=== PATIENT | female | born 1960 | race Caucasian/White ===

== ENCOUNTER → 2019-01-26 14:24 | Outpatient (CLI) | payer OTHER, SELFPAY ==
[2019-01-24 15:04] VITALS: BMI 31.5
--- NOTE | 2019-01-26 14:35 | BI_ITS ---
MAMMOGRAPHY - BILATERAL SCREENING REASON FOR EXAM: Female, 58 years old. Routine annual screening examination. PERTINENT HISTORY: Mother with breast cancer. TECHNIQUE: Digital bilateral breast nguyen (3D mammographic acquisition) in the CC and MLO projections. 2-D mediolateral oblique (MLO) and craniocaudad (CC) views of both breasts were obtained. CAD: Full Field Digital Mammography with Computer Added Detection was performed. COMPARISON: Comparison is made with prior outside examination dated February 01, 2018. FINDINGS: Breast Composition: There are scattered areas of fibroglandular density. There are no dominant masses or suspicious calcifications. No other significant abnormalities are identified. There has been no significant change since the prior study. BI/SCREEN MAMM (CAD) W/NGUYEN BILAT IMPRESSION: Stable bilateral screening mammogram. Yearly follow-up mammogram recommended. (A) ASSESSMENT CATEGORY: BIRADS Category 1: Negative. A letter regarding these results will be sent to the patient by the facility within 30 days. Approximately 10% of breast cancers are not detected by mammography. A normal mammogram should not delay biopsy of a clinically suspicious abnormality. [id number] Electronically Signed: Kimo Casey, at 8:16 EDT , Service support ,
== END ==
PROVIDERS: Family Provider Internal Medicine; PCP Internal Medicine; Referring Provider Internal Medicine; Visit Provider Internal Medicine
DX: Z12.31 Encounter for screening mammogram for malignant neoplasm of breast (principal)
CPT/HCPCS: 77063; 77067

== ENCOUNTER → 2019-01-31 07:40 | Outpatient (CLI) | payer OTHER, SELFPAY ==
[2019-01-24 15:04] VITALS: BMI 31.5
--- NOTE | 2019-01-31 13:27 | PFTCOMP_ITS ---
COMPLETE PULMONARY FUNCTION TEST INTERPRETATION Brief HPI: Patient is a 58 year old female, currently under the care of Dr. Conner, who presents to [facility] for complete pulmonary function tests secondary to diagnosis of dyspnea and chronic cough. Respiratory therapist reports good effort and reproducible results. Interpretation: Forced expiration spirometry shows a mild large airways obstructive ventilatory defect with an FEV1 of 77% predicted. There is no significant bronchodilator response by strict ATS criteria. Spirograms are of good quality and plateau slowly, indicating slowly emptying areas of the lungs. The respiratory flow volume loop shows decreased expiratory flow rates at all lung volumes consistent with airway obstruction. Lung volumes by body plethysmography show a normal total lung capacity at 4.29 L, 98% predicted. All other lung volumes are within normal limits. Diffusion capacity by carbon monoxide is normal at 77% predicted. The airway resistance is normal. No previous pulmonary function tests were available for review. Impression: Irreversible mild large airways obstructive ventilatory defect with preserved lung volumes and diffusion capacity, in a pattern consistent with chronic bronchitis.
== END ==
PROVIDERS: Family Provider Internal Medicine; PCP Internal Medicine; Referring Provider Internal Medicine; Visit Provider Internal Medicine
DX: R05 Cough (principal); R06.02 Shortness of breath
CPT/HCPCS: 94060; 94726; 94729

== ENCOUNTER → 2019-03-14 09:48 | Outpatient (CLI) | payer OTHER, SELFPAY ==
[2019-02-24 14:22] VITALS: BMI 31.5
--- NOTE | 2019-03-14 09:50 | RAD_ITS ---
STUDY: X-RAY CHEST REASON FOR EXAM: Female, 58 years old. Shortness of breath. Chronic bronchitis. TECHNIQUE: PA and lateral views of the chest. COMPARISON: None. FINDINGS: The lungs are clear and expanded. There is no demonstrated pleural abnormality. Normal size heart. Normal mediastinum and garth. Normal visualized pulmonary arteries. There is minimal atherosclerotic calcification of the aortic arch with tortuosity. Normal visualized thoracic spine. Normal visualized ribs, clavicles, and shoulders. There is no demonstrated abnormality of the visualized soft tissue structures of the upper abdomen. RAD/Chest PA and Lateral IMPRESSION: No acute cardiopulmonary disease. Electronically Signed: Tyron Dickinson DO at 16:51 EST Tel [phone], Service support ,
== END ==
PROVIDERS: Family Provider Internal Medicine; PCP Internal Medicine; Referring Provider Internal Medicine; Visit Provider Internal Medicine
DX: R06.02 Shortness of breath (principal); R05 Cough
CPT/HCPCS: 71046

== ENCOUNTER → 2019-03-15 10:00 | Outpatient (CLI) | payer OTHER, SELFPAY ==
[2019-02-24 14:22] VITALS: BMI 31.5
[2019-03-15 12:34] LABS: ALB/GLOB Ratio 0.7 RATIO (0.9-2.4); AST(SGOT) 18 U/L (15-37); Alanine Aminotransfer ALT/SGPT 28 U/L (13-56); Albumin, Serum 3.2 g/dL (3.2-5.0); Alkaline Phosphatase 102 U/L (45-117); Anion Gap 4 (5-15); BUN 11 mg/dL (7-18); BUN/Creat Ratio 11.9 RATIO (10-20); Calcium,Total 8.9 mg/dL (8.5-10.1); Chloride 108 mmol/L (98-107); Cholesterol 175 mg/dL (200); Creatinine, Serum 0.93 mg/dL (0.55-1.02); EST Glomerular Filtration Rate 66 mL/min (>60); Est Glom Filt Rate - Afr Amer 79 mL/min (>60); Globulin 4.6 g/dL (2.2-4.2); Glucose 130 mg/dL (74-106); High Density Lipoprotein 66 mg/dL; Potassium 3.9 mmol/L (3.5-5.1); Protein, Total 7.8 g/dL (6.4-8.2); Sodium Level 141 mmol/L (136-145); Triglycerides 56 mg/dL; Very Low Density Lipoprotein 11 mg/dL (5-40)
[2019-03-15 12:41] LABS: Absolute Lymphocyte Count 1.99 X10^3/uL (0.83-4.51); Absolute Neutrophil Count 4.3 X10^3/uL (2.0-7.7); Basophil# 0.04 X10^3/uL; Basophil% 0.6 % (0-1); Eosinophil# 0.13 X10^3/uL; Eosinophils% 1.9 % (0-5); Hematocrit 39.7 % (37-47); Hemoglobin 12.2 g/dL (12.0-15.0); Lymphocyte # 1.99 X10^3/ul (4.0); Lymphocyte % 29.2 % (19-41); Mean Corp Hgb Conc 30.7 g/dL (32-36); Mean Corpuscular Hgb 27.5 pg (27.0-32.0); Mean Corpuscular Volume 89.4 fL (81-99); Mean Platelet Vol. 9.1 fl (6.2-12.0); Monocyte# 0.37 X10^3/uL; Monocyte% 5.4 % (0-10); NRBC Flagged by Analyzer 0 % (0-5); Neutrophil # 4.27 X10^3/uL (2.7-7.7); Neutrophil % 62.6 % (47-70); Platelet Count 440 K/mm3 (150-450); RBC Distribution Width CV 15.4 % (11.6-14.6); RBC Distribution Width SD 50.4 fl (35.1-43.9); Red Blood Count 4.44 M/mm3 (4.2-5.4); White Blood Count 6.8 K/mm3 (4.4-11.0)
== END ==
PROVIDERS: Family Provider Internal Medicine; PCP Internal Medicine; Visit Provider Internal Medicine
DX: J42 Unspecified chronic bronchitis (principal); E66.9 Obesity, unspecified
CPT/HCPCS: 36415; 80053; 80061; 85025

== ENCOUNTER → 2020-01-12 | Outpatient (CLI) | payer BC, SELFPAY ==
[2020-01-12 14:35] VITALS: BMI 34.0
[2020-01-18 04:39] LABS: HPV APTIMA, High Risk Negative (Negative)
== END | disposition home or self-care (01) ==
LOC: LABSPEC 16:35
PROVIDERS: PCP Internal Medicine; Referring Provider Obstetrics & Gynecology; Visit Provider Obstetrics & Gynecology
DX: Z12.4 Encounter for screening for malignant neoplasm of cervix (principal)
CPT/HCPCS: 87624; 88175; G0145

== ENCOUNTER → 2020-01-23 09:20 | Outpatient (CLI) | payer BC, SELFPAY ==
[2020-01-20 11:17] VITALS: BMI 34.0
== END ==
PROVIDERS: PCP Internal Medicine; Referring Provider Nurse Practitioner Family; Visit Provider Nurse Practitioner Family
DX: R05 Cough (principal); Z20.828 Contact with and (suspected) exposure to other viral communicable diseases
CPT/HCPCS: 87635; C9803; U0003

== ENCOUNTER → 2020-02-03 14:25 | Outpatient (CLI) | payer BC, SELFPAY ==
[2020-01-12 14:35] VITALS: BMI 34.0
[2020-01-20 11:17] VITALS: BMI 34.0
--- NOTE | 2020-02-03 14:40 | BI_ITS ---
MAMMOGRAPHY - BILATERAL SCREENING REASON FOR EXAM: Female, 59 years old. Routine annual screening examination. PERTINENT HISTORY: Mother with breast cancer. TECHNIQUE: Digital bilateral breast nguyen (3D mammographic acquisition) in the CC and MLO projections. 2-D mediolateral oblique (MLO) and craniocaudad (CC) views of both breasts were obtained. CAD: Full Field Digital Mammography with Computer Added Detection was performed. COMPARISON: Comparison is made with prior study dated 01/26/2019. FINDINGS: Breast Composition: There are scattered areas of fibroglandular density. There are no dominant masses or suspicious calcifications. No other significant abnormalities are identified. There has been no significant change since the prior study. BI/SCREEN MAMM (CAD) W/NGUYEN BILAT IMPRESSION: Stable bilateral screening mammogram. Yearly follow-up mammogram recommended. (A) ASSESSMENT CATEGORY: BIRADS Category 1: Negative. A letter regarding these results will be sent to the patient by the facility within 30 days. Approximately 10% of breast cancers are not detected by mammography. A normal mammogram should not delay biopsy of a clinically suspicious abnormality. [id number] Electronically Signed: Kimo Casey, at 15:36 EDT , Service support ,
== END ==
PROVIDERS: PCP Internal Medicine; Referring Provider Obstetrics & Gynecology; Visit Provider Obstetrics & Gynecology
DX: Z12.31 Encounter for screening mammogram for malignant neoplasm of breast (principal); Z80.3 Family history of malignant neoplasm of breast
CPT/HCPCS: 77063; 77067

== ENCOUNTER → 2020-02-16 | Outpatient (CLI) | payer BC, SELFPAY | END | disposition home or self-care (01) | LOC: LABSPEC 02-21 12:18 | PROVIDERS: PCP Internal Medicine; Referring Provider Nurse Practitioner Family; Visit Provider Nurse Practitioner Family | DX: R05 Cough (principal); Z20.828 Contact with and (suspected) exposure to other viral communicable diseases | CPT/HCPCS: 87635; C9803; U0003 ==

== ENCOUNTER → 2020-03-09 13:33 | Outpatient (CLI) | payer BC, SELFPAY ==
--- NOTE | 2020-03-09 13:38 | RAD_ITS ---
STUDY: X-RAY CHEST REASON FOR EXAM: Female, 59 years old. SOB, COUGH AND CHEST TIGHTNESS. HX OF COPD TECHNIQUE: PA and lateral views of the chest. COMPARISON: Comparison is made with prior study dated 03/14/2019. FINDINGS: Mild increased markings in the right middle lobe. Infiltrate should be ruled out. There is no demonstrated pleural abnormality. Normal size heart. Normal mediastinum and garth. Normal visualized pulmonary arteries. Normal visualized aortic arch and descending thoracic aorta. Normal visualized thoracic spine. Normal visualized ribs, clavicles, and shoulders. There is no demonstrated abnormality of the visualized soft tissue structures of the upper abdomen. RAD/Chest PA and Lateral IMPRESSION: Mild increased markings are seen in the right middle lobe. Follow-up is recommended. Electronically Signed: Kimo Casey, at 15:39 EST , Service support ,
== END ==
PROVIDERS: PCP Internal Medicine; Referring Provider Nurse Practitioner Family; Visit Provider Nurse Practitioner Family
DX: R05 Cough (principal)
CPT/HCPCS: 71046

== ENCOUNTER → 2020-03-28 09:51 | Outpatient (CLI) | payer BC, SELFPAY ==
--- NOTE | 2020-03-28 09:52 | RAD_ITS ---
STUDY: X-RAY CHEST REASON FOR EXAM: Female, 59 years old. cough, recent pneumonia TECHNIQUE: 2 views COMPARISON: 03/09/2020 FINDINGS: Small persistent pleural-based density consistent with scarring or persistent atelectasis in the right middle lung zone. Otherwise no other infiltrates, consolidation or pleural effusion. Normal size heart. Normal mediastinum and garth. Normal visualized pulmonary arteries. There is atherosclerotic calcification of the aortic arch . Normal visualized thoracic spine. Normal visualized ribs, clavicles, and shoulders. There is no demonstrated abnormality of the visualized soft tissue structures of the upper abdomen. RAD/Chest PA and Lateral IMPRESSION: 1 minimal area of persistent atelectasis or scarring in the right middle lobe. Otherwise no acute cardiopulmonary findings. Electronically Signed: Lin Mills MD at 8:55 EST , Service support ,
== END ==
PROVIDERS: PCP Internal Medicine; Referring Provider Nurse Practitioner Family; Visit Provider Nurse Practitioner Family
DX: R05 Cough (principal)
CPT/HCPCS: 71046

== ENCOUNTER → 2021-02-04 13:33 | Outpatient (CLI) | payer BC, SELFPAY ==
--- NOTE | 2021-02-04 13:35 | BI_ITS ---
MAMMOGRAPHY - BILATERAL SCREENING REASON FOR EXAM: Female, 60 years old. Routine annual screening examination. PERTINENT HISTORY: Mother with breast cancer. TECHNIQUE: Digital bilateral breast nguyen (3D mammographic acquisition) in the CC and MLO projections. 2-D mediolateral oblique (MLO) and craniocaudad (CC) views of both breasts were obtained. CAD: Full Field Digital Mammography with Computer Added Detection was performed. COMPARISON: Comparison is made with prior study dated 02/03/2020 and 01/26/2019. FINDINGS: Breast Composition: There are scattered areas of fibroglandular density. There are no dominant masses or suspicious calcifications. No other significant abnormalities are identified. There has been no significant change since the prior study. BI/SCRN MAMM (CAD)W/NGUYEN BILAT IMPRESSION: Stable bilateral screening mammogram. Yearly follow-up mammogram recommended. (A) ASSESSMENT CATEGORY: BIRADS Category 1: Negative. A letter regarding these results will be sent to the patient by the facility within 30 days. Approximately 10% of breast cancers are not detected by mammography. A normal mammogram should not delay biopsy of a clinically suspicious abnormality. [id number] Electronically Signed: Kimo Casey MD at 14:19 EDT , Service support ,
== END ==
PROVIDERS: PCP Internal Medicine; Referring Provider Internal Medicine; Visit Provider Internal Medicine
DX: Z12.31 Encounter for screening mammogram for malignant neoplasm of breast (principal); Z80.3 Family history of malignant neoplasm of breast
CPT/HCPCS: 77063; 77067

== ENCOUNTER 2021-07-12 13:51 | Outpatient (CLI) | payer BC, SELFPAY ==
[2021-07-12 14:43] LABS: Absolute Lymphocyte Count 2.09 X10^3/uL (0.83-4.51); Absolute Neutrophil Count 4.5 X10^3/uL (2.0-7.7); Basophil# 0.02 X10^3/uL; Basophil% 0.3 % (0-1); Eosinophils% 1.4 % (0-5); Hematocrit 37.5 % (37-47); Hemoglobin 11.8 g/dL (12.0-15.0); Lymphocyte # 2.09 X10^3/ul (0.83-4.51); Lymphocyte % 29.1 % (19-41); Mean Corp Hgb Conc 31.5 g/dL (32-36); Mean Corpuscular Hgb 27.9 pg (27.0-32.0); Mean Corpuscular Volume 88.7 fL (81-99); Mean Platelet Vol. 8.9 fl (6.2-12.0); Monocyte# 0.43 X10^3/uL; NRBC Flagged by Analyzer 0 % (0-5); Neutrophil # 4.53 X10^3/uL (2.7-7.7); Neutrophil % 63.1 % (47-70); Platelet Count 537 K/mm3 (150-450); RBC Distribution Width CV 14.6 % (11.6-14.6); RBC Distribution Width SD 47.2 fl (35.1-43.9); Red Blood Count 4.23 M/mm3 (4.2-5.4); White Blood Count 7.2 K/mm3 (4.4-11.0)
[2021-07-12 15:28] LABS: ALB/GLOB Ratio 0.6 RATIO (0.9-2.4); AST(SGOT) 11 U/L (15-37); Alanine Aminotransfer ALT/SGPT 22 U/L (13-56); Alkaline Phosphatase 96 U/L (45-117); Anion Gap 4 (5-15); BUN 12 mg/dL (7-18); BUN/Creat Ratio 15.4 RATIO (10-20); Calcium,Total 8.8 mg/dL (8.5-10.1); Chloride 107 mmol/L (98-107); Cholesterol 171 mg/dL (200); Creatinine, Serum 0.78 mg/dL (0.55-1.02); EST Glomerular Filtration Rate 80 mL/min (>60); Est Glom Filt Rate - Afr Amer 96 mL/min (>60); Globulin 4.8 g/dL (2.2-4.2); Glucose 90 mg/dL (74-106); High Density Lipoprotein 57 mg/dL; Potassium 4.1 mmol/L (3.5-5.1); Protein, Total 7.8 g/dL (6.4-8.2); Sodium Level 139 mmol/L (136-145); T4 Free Direct 1.02 ng/dL (0.76-1.46); Thyroid Stim Hormone (TSH) 1.17 uIU/mL (0.358-3.74); Triglycerides 65 mg/dL; Very Low Density Lipoprotein 13 mg/dL (5-40)
== END 2021-07-12 23:59 | disposition home or self-care (01) ==
LOC: BIMLAB 13:52
PROVIDERS: PCP Internal Medicine; Referring Provider Physician Assistant; Visit Provider Physician Assistant
DX: K51.90 Ulcerative colitis, unspecified, without complications (principal); K58.9 Irritable bowel syndrome, unspecified; K21.9 Gastro-esophageal reflux disease without esophagitis; F41.9 Anxiety disorder, unspecified
CPT/HCPCS: 36415; 80053; 80061; 84439; 84443; 85025

== ENCOUNTER → 2021-09-25 | Outpatient (CLI) | payer BC, SELFPAY | END | disposition home or self-care (01) | LOC: LABSPEC 10:31 | PROVIDERS: PCP Internal Medicine; Visit Provider Obstetrics & Gynecology | DX: N90.7 Vulvar cyst (principal) | CPT/HCPCS: 87070; 87205 ==

== ENCOUNTER → 2021-10-09 | Outpatient (CLI) | payer BC, SELFPAY ==
--- NOTE | 2021-10-09 15:44 | CT_ITS ---
EXAM: CT ABDOMEN AND PELVIS WITH INTRAVENOUS CONTRAST CLINICAL INDICATION: pelvic pain TECHNIQUE: Helically acquired images were obtained of the abdomen and pelvis with intravenous contrast. CTDIvol = ( 18.42 ) mGy, DLP = ( 2023.26 ) mGycm This CT exam was performed using one or more of the following dose reduction techniques: automated exposure control, adjustment of the mA and/or kV according to patient size, and/or use of iterative reconstruction technique. This report was created using iNeed report StandardNine technology. CONTRAST: Oral and amp;amp; IV Readi-CAT and amp;amp; 100mL Isovue-300 COMPARISON: None. FINDINGS: LOWER THORAX: Unremarkable. Lung bases are clear. No cardiomegaly. No significant pericardial effusion. ABDOMEN: LIVER: See below. GALLBLADDER AND BILE DUCTS: Prior cholecystectomy. No intra- or extrahepatic biliary ductal dilation. PANCREAS: Unremarkable. No focal cystic or solid mass. SPLEEN: Hypodense lesion involving the spleen is small, measuring up to 1 cm. Consider follow-up nonemergent liver CT to value for possible hemangioma. ADRENALS: Unremarkable. No nodules. KIDNEYS AND URETERS: No hydroureteronephrosis. No other renal abnormalities. Normal renal size and position. STOMACH AND BOWEL: Thickening of the wall of the duodenum is concerning for duodenitis. No bowel obstruction. Postsurgical changes involving the area of the rectum which appears distended with fluid and air. PELVIS: APPENDIX: No evidence of acute appendicitis. BLADDER: Bladder is decompressed in appearance. REPRODUCTIVE: Unremarkable as visualized. No mass. ABDOMEN and PELVIS: INTRAPERITONEAL SPACE: Unremarkable. No ascites or other fluid collection. No free air. BONES/JOINTS: Unremarkable. No suspicious lytic or blastic abnormality. SOFT TISSUES: Unremarkable. No discrete abdominal or pelvic wall hernia. VASCULATURE: Unremarkable. Abdominal aorta is non-dilated. LYMPH NODES: Unremarkable. No enlarged lymph nodes. CT/Abdomen/Pelvis WITH Contrast IMPRESSION: 1. Postsurgical changes involving the area of the rectum which appears distended with fluid and air. 2. Thickening of the wall of the duodenum is concerning for duodenitis. 3. Hypodense lesion involving the spleen is small, measuring up to 1 cm. Consider follow-up nonemergent liver CT to value for possible hemangioma. Electronically Signed: Dung Aranda MD at 4:36 EDT ,
[2021-10-09 16:10] LABS: CREATININE FINGERSTICK < 0.9 mg/dL (0.55-1.02); EGFR FINGERSTICK > 60.0000 mL/min (>60)
== END | disposition home or self-care (01) ==
PROVIDERS: PCP Internal Medicine; Referring Provider Obstetrics & Gynecology; Visit Provider Obstetrics & Gynecology
DX: K31.89 Other diseases of stomach and duodenum (principal); D73.89 Other diseases of spleen; R10.2 Pelvic and perineal pain
CPT/HCPCS: 74177; Q9967

== ENCOUNTER → 2022-01-10 | Outpatient (CLI) | payer BC, SELFPAY ==
[2022-01-10 13:47] LABS: Absolute Lymphocyte Count 1.68 X10^3/uL (0.83-4.51); Absolute Neutrophil Count 4.5 X10^3/uL (2.0-7.7); Basophil# 0.02 X10^3/uL; Basophil% 0.3 % (0-1); Eosinophil# 0.04 X10^3/uL; Eosinophils% 0.6 % (0-5); Hematocrit 40.2 % (37-47); Hemoglobin 12.4 g/dL (12.0-15.0); Lymphocyte # 1.68 X10^3/ul (0.83-4.51); Lymphocyte % 25.2 % (19-41); Mean Corp Hgb Conc 30.8 g/dL (32-36); Mean Corpuscular Hgb 26.7 pg (27.0-32.0); Mean Corpuscular Volume 86.6 fL (81-99); Mean Platelet Vol. 9.3 fl (6.2-12.0); NRBC Flagged by Analyzer 0 % (0-5); Neutrophil # 4.51 X10^3/uL (2.7-7.7); Neutrophil % 67.6 % (47-70); Platelet Count 447 K/mm3 (150-450); RBC Distribution Width CV 16.1 % (11.6-14.6); RBC Distribution Width SD 49.9 fl (35.1-43.9); Red Blood Count 4.64 M/mm3 (4.2-5.4); White Blood Count 6.7 K/mm3 (4.4-11.0)
[2022-01-10 13:55] LABS: Erythrocyte Sedimentation Rate 69 mm/hr (0-30)
[2022-01-10 14:27] LABS: ALB/GLOB Ratio 0.6 RATIO (0.9-2.4); AST(SGOT) 13 U/L (15-37); Alanine Aminotransfer ALT/SGPT 21 U/L (13-56); Alkaline Phosphatase 84 U/L (45-117); Anion Gap 8 (5-15); BUN 13 mg/dL (7-18); BUN/Creat Ratio 14.3 RATIO (10-20); Calcium,Total 9.3 mg/dL (8.5-10.1); Chloride 108 mmol/L (98-107); Creatinine, Serum 0.91 mg/dL (0.55-1.02); EST Glomerular Filtration Rate 66 mL/min (>60); Est Glom Filt Rate - Afr Amer 80 mL/min (>60); Globulin 4.7 g/dL (2.2-4.2); Glucose 99 mg/dL (74-106); LDH 128 U/L (84-246); Potassium 4.2 mmol/L (3.5-5.1); Protein, Total 7.7 g/dL (6.4-8.2); Sodium Level 142 mmol/L (136-145)
[2022-01-13 13:08] LABS: Anti-Centromere B Ab <0.2 AI (0.0-0.9); Anti-Chromatin <0.2 AI (0.0-0.9); Anti-Jo <0.2 AI (0.0-0.9); Anti-Scleroderma-70 AB <0.2 AI (0.0-0.9); RNP Ab 0.4 AI (0.0-0.9); SJOGREN'S Anti-SS-A test < 0.2 AI (0.0-0.9); SJOGREN'S Anti-SS-B test < 0.2 AI (0.0-0.9); Smith Ab <0.2 AI (0.0-0.9)
[2022-01-13 15:08] LABS: Endomysial Antibody IgA Negative (Negative)
[2022-01-13 16:49] LABS: Anti-dsDNA Ab 1 IU/mL (0-9)
[2022-01-14 08:56] LABS: Immunoglobulin A 463 mg/dL (87-352); t-Transglutaminase IgA 3 U/mL (0-3)
[2022-01-18 17:07] LABS: Albumin 3.2 g/dL (2.9-4.4); Alpha-1-Globulins 0.3 g/dL (0.0-0.4); Alpha-2-Globulins 0.9 g/dL (0.4-1.0); Cytoplasmic Ab (C-ANCA) <1:20 titer (Neg:<1:20); Gamma Globulin 1.6 g/dL (0.4-1.8); Immunoglobulin A 474 mg/dL (87-352); Immunoglobulin E 77 IU/mL (6-495); Immunoglobulin G 1466 mg/dL (586-1602); Immunoglobulin M 107 mg/dL (26-217); PROEL- TOTAL PROTEIN 7.2 g/dL (6.0-8.5)
[2022-01-19 08:34] LABS: Perinuclear Ab (P-ANCA) <1:20 titer (Neg:<1:20)
== END | disposition home or self-care (01) ==
PROVIDERS: PCP Internal Medicine; Visit Provider Internal Medicine Gastroenterology
DX: K51.90 Ulcerative colitis, unspecified, without complications (principal)
CPT/HCPCS: 36415; 80053; 82784; 82785; 83516; 83615; 84165; 85025; 85652; 86140; 86225; 86235; 86255; 86256; 86334

== ENCOUNTER → 2022-01-15 | Outpatient (CLI) | payer BC, SELFPAY ==
[2022-01-21 13:21] LABS: Calprotectin, Stool 637 ug/g (0-120)
== END | disposition home or self-care (01) ==
LOC: LABSPEC 14:16
PROVIDERS: PCP Internal Medicine; Visit Provider Internal Medicine Gastroenterology
DX: K51.90 Ulcerative colitis, unspecified, without complications (principal)
CPT/HCPCS: 83630; 83993

== ENCOUNTER → 2022-02-06 | Outpatient (CLI) | payer BC, SELFPAY ==
--- NOTE | 2022-02-06 12:54 | BI_ITS ---
MAMMOGRAPHY - BILATERAL SCREENING REASON FOR EXAM: Female, 61 years old. Routine annual screening examination. PERTINENT HISTORY: Mother with breast cancer. TECHNIQUE: Digital bilateral breast nguyen (3D mammographic acquisition) in the CC and MLO projections. 2-D mediolateral oblique (MLO) and craniocaudad (CC) views of both breasts were obtained. CAD: Full Field Digital Mammography with Computer Added Detection was performed. COMPARISON: Comparison is made with prior study 02/04/2021 and 02/03/2020. FINDINGS: Breast Composition: There are scattered areas of fibroglandular density. There are no dominant masses or suspicious calcifications. No other significant abnormalities are identified. There has been no significant change since the prior study. BI/SCRN MAMM (CAD)W/NGUYEN BILAT IMPRESSION: Stable bilateral screening mammogram. Yearly follow-up mammogram recommended. (A) ASSESSMENT CATEGORY: BIRADS Category 1: Negative. A letter regarding these results will be sent to the patient by the facility within 30 days. Approximately 10% of breast cancers are not detected by mammography. A normal mammogram should not delay biopsy of a clinically suspicious abnormality. [id number] Electronically Signed: Kimo Casey MD at 14:03 EDT ,
== END | disposition home or self-care (01) ==
LOC: OPBI 12:53
PROVIDERS: PCP Internal Medicine; Referring Provider Internal Medicine; Visit Provider Internal Medicine
DX: Z12.31 Encounter for screening mammogram for malignant neoplasm of breast (principal); Z80.3 Family history of malignant neoplasm of breast
CPT/HCPCS: 77063; 77067

== ENCOUNTER 2022-03-12 09:17 | Day surgery (SDC) | payer BC, SELFPAY ==
[2022-03-12] VITALS (7 sets, daily range): BP systolic 90–126; BP diastolic 56–90; PULSE 60–95; RESP 16–18; TEMP 36.4–36.8; O2SAT 92–98
--- NOTE | 2022-03-12 09:50 | HP.PCM_ITS ---
History and Physical Date of Admission: 03/12/22 61 F who presents to the office today for Initial consult. Madelin established with this cinic .11.25 with referral from [facility]. History of UC with complete resection of colon performed 1996 in [place]; disease was not controlled with medications (unknown meds). Previously suspected fistula formation that was negative; pelvic exam 09.25.21 noted two perirectal sores that leak purulent matter, itch and are painful. She is incontinent of stool for the last couple of years; occurs every day and is all day long. Incontinence has not been evaluated previously. No abdominal pain/cramping, appetite is good, no weight loss. GERD is also a difficulty; but is well controlled with PPI and has no breakthrough symptoms related to this. CT abd/pel 10.09.21 small splenic lesion; suspected hepatic hemangioma; possible duodenitis; postsurgical changes of rectum which is distended with fluid and air. ROS Const Constitutional: No body ache, chills, excessive sweating, fatigue, fever(s), frequent falls, headache(s), snoring, weakness, weight change, sleep problems or change in appetite Eyes Eyes: No blurry vision, change in vision, eye pain or Light sensitivity ENT ENT: No abnormal hearing, ear or mastoid pain, tinnitus, nasal congestion, headache(s), neck pain or sore throat Resp Respiratory: No cough, shortness of breath, snoring or wheezing Cardio Cardiology: No chest pain at rest, chest pain with exertion, excessive sweating, shortness of breath, dyspnea on exertion, lightheadedness, orthopnea or palpitations Gastro GI: No abdominal pain, change in bowel habits, constipation, cramping, diarrhea, nausea/dyspepsia or vomiting Genitourinary-Female: No burning urination, painful urination, urinary incontinence, urinary frequency, abnormal vaginal bleeding or pelvic pain Musc Musculoskeletal: No abnormal gait, joint pain, back pain, limited range of motion, neck pain, numbness or tingling Skin Skin: No dry skin, redness, lesions, itchy eyes, rash or wounds Neuro Neurology: No abnormal gait, abnormal hearing, abnormal speech, dizziness, weakness, frequent falls, headache(s), memory loss, numbness or tingling Psych Psychiatric: No anxiety, No change in appetite, No depression, No memory loss and No Thoughts of harming yourself/Others Endo Endocrine: No cold intolerance, excessive sweating, fatigue, flushing, heat intolerance, increased thirst/drinking, increased hunger or weight change Aller/Imm Allergy/Immunologic: No itchy eyes, seasonal allergy symptoms, hives or wheezing Harjinder/Lymp Hematologic/Lymphatic: No easy bleeding, easy bruising or enlarged lymph nodes Exam Const General: cooperative, uncomfortable and no acute distress Orientation: alert, awake and oriented x3 HENMT Head: normal to inspection, normocephalic and atraumatic Ears: hearing grossly normal bilaterally Neck Neck: normal visual inspection and full ROM Neck mass: No Resp Effort & Inspection: normal respiratory effort and able to speak in complete sentences Auscultation: Bilateral: Clear to Auscultation Cardio Rate: regular rate Rhythm: regular rhythm Heart Sounds: S1 normal and S2 normal Skin General: no rashes or lesions noted Trauma: no lacerations or abrasions Wounds: no wounds Neuro General: patient alert, patient awake, patient oriented x3, moves all extremities and CN's II-XI intact bilaterally Cognition: normal cognition Speech: speech normal Gait: normal gait Extrem General: normal to inspection and no clubbing, cyanosis or edema Psych Appearance: grossly normal Mental Status: mental status grossly normal Mood: congruent mood Affect: normal affect Quality Reporting Tobacco Screening ([facility]) Smoking Status: Former smoker Assessment and Plan Assessment and Plan (1) Ulcerative colitis: ?Status:?Chronic ?Plan: It sounds as if she has a pouchitis.? We will give her levofloxacin plus metronidazole for approximately 14 days with 1 refill.? We will also give her a short course of tramadol and hydrocortisone suppositories for anal fissure.? She may also need either mesalamine or steroid-based enemas in the future if she is refractory to this current recommendation. ? ? ? Medications: New levofloxacin 500 mg PO DAILY 14 tabs 0RF ? ? metronidazole 500 mg PO Q8H 52 tabs 0RF ? ? tramadol 50 mg PO Q6H PRN 30 tabs 0RF pain 10 day s ? ? hydrocortisone acetate 30 mg ND QHS 12 ea 1RF 21 days ? ? I have examined the patient and the H&P has been reviewed. There are no clinical changes since date of exam.
[2022-03-12] MEDS: Lactated Ringers 1,000 ML 15 ML IV (10:04)
--- NOTE | 2022-03-12 10:30 | EGD_PTH ---
PATIENT: WENDY BUCKLEY LOC: EN U#:[id number] AGE/SX: 61/F ROOM: RE03/12/[address]: Dr. Almas Somers DO : 1960 BED: DIS: 03/12/2022 SPEC #: [id number] RECD: 03/12/22 12:42 STATUS: VALENTE CRUZ #: [id number] JESSICA: 03/12/22 10:[address]: Almas Somers DEPT: SURGICAL PATHOLOGY RECD BY: Kaylyn Frost ENTERED: 03/12/22 13:29 SP TYPE: EGD BIOPSY [facility] DR: Dr. Nigel Conner MD Tissues: A - Esophagus, NOS B - COLON BIOPSY C - COLON BIOPSY Procedures: Special Stain Group II Surgery Specimen Level IV Alcian Blue/PAS (control) HEADER OPERATION: Colonoscopy, EGD (MAC), pill cam placement, biopsy, electrohemostasis PRE-OP DIAGNOSIS: Ulcerative colitis TISSUE SUBMITTED: A ? Distal esophagus biopsy, B ? Ileoanal anastomosis biopsy, C ? Anal biopsy MICROSCOPIC DIAGNOSIS A. Distal esophagus, biopsy Fragments of gastroesophageal mucosa with chronic inflammation. Intestinal metaplasia (goblet cell metaplasia) not identified. See comment. B. Ileoanal anastomosis, biopsy: Fragments of small intestine and colonic mucosa with ulceration, acute and chronic inflammation and granulation tissue reaction. No evidence of dysplasia. See comment. C. Anal biopsy: Fragments of colonic mucosa with extensive ulceration, acute and chronic inflammation and granulation tissue reaction. Negative for dysplasia. See comment. SJ:rg 03/13/2022 COMMENT A. Alcian blue/PAS stain with matched control is used in the evaluation of the specimen. B. Granular distortion is noted. C. Cryptitis and granular distortion are noted. Correlation with clinical, endoscopic findings and appropriate follow up are necessary. MICROSCOPIC DESCRIPTION Slides are reviewed. GROSS DESCRIPTION A - Received in fixative is one container labeled with the patient's name and designated distal esophagus biopsy. The specimen consists of two irregular fragments of light michel soft tissue that in aggregate measure 0.8 x 0.3 x 0.1 cm. The specimen is totally submitted in one cassette. B - Received in fixative is one container labeled with the patient's name and designated ileoanal anastomosis biopsy. The specimen consists of multiple irregular fragments of light michel soft tissue that in aggregate measure 1 x 0.5 x 0.1 cm. The specimen is totally submitted in one cassette. C - Received in fixative is one container labeled with the patient's name and designated anal biopsy. The specimen consists of multiple irregular fragments of light michel soft tissue that in aggregate measure 0.8 x 0.4 x 0.1 cm. The specimen is totally submitted in one cassette. / SJ:rg 03/12/2022 TC:2 CPT: 64762 x3, 25491
--- NOTE | 2022-03-12 10:56 | OP.EGD_ITS ---
Patient Name: Madelin Koroma Procedure Date: 03/12/2022 10:18 AM Date of : 1960 Age: 61 Procedure: Upper GI endoscopy Indications: Lower abdominal pain, Upper abdominal pain, Dyspepsia Providers: Almas Somers DO Medicines: Monitored Anesthesia Care Patient Profile: This is a 61 year old female. Refer to note in patient chart for documentation of history and physical. Patient has symptoms of chronic abdominal cramping, chronic abdominal distention and acute global abdominal pain. Complications: No immediate complications. Procedure: Pre-Anesthesia Assessment: - Prior to the procedure, a History and Physical was performed, and patient medications and allergies were reviewed. The risks and benefits of the procedure and the sedation options and risks were discussed with the patient. All questions were answered and informed consent was obtained. Patient identification and proposed procedure were verified by the physician. Mental Status Examination: normal. Prophylactic Antibiotics: The patient does not require prophylactic antibiotics. Prior Anticoagulants: The patient has taken no previous anticoagulant or antiplatelet agents. After reviewing the risks and benefits, the patient was deemed in satisfactory condition to undergo the procedure. The anesthesia plan was to use monitored anesthesia care (MAC). Immediately prior to administration of medications, the patient was re-assessed for adequacy to receive sedatives. The heart rate, respiratory rate, oxygen saturations, blood pressure, adequacy of pulmonary ventilation, and response to care were monitored throughout the procedure. The physical status of the patient was re-assessed after the procedure. After obtaining informed consent, the endoscope was passed under direct vision. Throughout the procedure, the patient's blood pressure, pulse, and oxygen saturations were monitored continuously. The colonoscope was introduced through the mouth, and advanced to the second part of duodenum. The upper GI endoscopy was accomplished without difficulty. The patient tolerated the procedure well. Scope In: 10:27:10 AM Scope Out: 10:33:26 AM Total Procedure Duration Time 0 hours 6 minutes 16 seconds Findings: The Z-line was irregular and was found 36 cm from the incisors. Biopsies were taken with a cold forceps for histology. Verification of patient identification for the specimen was done. A small hiatal hernia was present. The first portion of the duodenum was normal. A capsule endoscopy was endoscopically placed into the small bowel. Impression: - Z-line irregular, 36 cm from the incisors. Biopsied. - Small hiatal hernia. - Normal first portion of the duodenum. Recommendation: - Await pathology results. - Continue present medications. Procedure Code(s): --- Professional --- 12468, Esophagogastroduodenoscopy, flexible, transoral; with biopsy, single or multiple CPT copyright 2017 [employer]. All rights reserved. The codes documented in this report are preliminary and upon institutional custodian review may be revised to meet current compliance requirements. Almas Somers DO 03/12/2022 10:56:00 AM This report has been signed electronically. Number of Addenda: 0 Note Initiated On: 03/12/2022 10:18 AM
--- NOTE | 2022-03-12 10:57 | OP.CCLET_ITS ---
03/12/2022 Nigel Conner MD [address] [place] [address] [place] [address] Re : Upper GI endoscopy procedure for Madelin Koroma Dear Dr. Conner This procedure was performed on Saturday, March 12, 2022. My impressions and recommendations are as follows: Impressions : - Z-line irregular, 36 cm from the incisors. Biopsied. - Small hiatal hernia. - Normal first portion of the duodenum. Recommendations : - Await pathology results. - Continue present medications. My findings are described in the full procedure note, which is enclosed. If I can be of further assistance, please feel free to contact me at . Sincerely, Almas Somers, 03/12/2022 10:56:00 AM This report has been signed electronically.
--- NOTE | 2022-03-12 11:07 | OP.COLON_ITS ---
Patient Name: Madelin Koroma Procedure Date: 03/12/2022 10:33 AM Date of : 1960 Age: 61 Procedure: Colonoscopy Indications: Disease activity assessment of Crohn's disease of the small bowel and colon Providers: Almas Somers DO Medicines: Monitored Anesthesia Care Patient Profile: This is a 61 year old female. Refer to note in patient chart for documentation of history and physical. Patient has symptoms of chronic abdominal cramping, chronic abdominal distention and acute global abdominal pain. Last Colonoscopy: date unknown. Unable to locate last colonoscopy report. Complications: No immediate complications. Procedure: Pre-Anesthesia Assessment: - Prior to the procedure, a History and Physical was performed, and patient medications and allergies were reviewed. The risks and benefits of the procedure and the sedation options and risks were discussed with the patient. All questions were answered and informed consent was obtained. Patient identification and proposed procedure were verified by the physician. Mental Status Examination: normal. Prophylactic Antibiotics: The patient does not require prophylactic antibiotics. Prior Anticoagulants: The patient has taken no previous anticoagulant or antiplatelet agents. After reviewing the risks and benefits, the patient was deemed in satisfactory condition to undergo the procedure. The anesthesia plan was to use monitored anesthesia care (MAC). Immediately prior to administration of medications, the patient was re-assessed for adequacy to receive sedatives. The heart rate, respiratory rate, oxygen saturations, blood pressure, adequacy of pulmonary ventilation, and response to care were monitored throughout the procedure. The physical status of the patient was re-assessed after the procedure. After I obtained informed consent, the scope was passed under direct vision. Throughout the procedure, the patient's blood pressure, pulse, and oxygen saturations were monitored continuously. The colonoscope was introduced through the anus and advanced to the terminal ileum. The colonoscopy was performed without difficulty. The patient tolerated the procedure well. The quality of the bowel preparation was good. Scope In: Scope Withdrawal Time 0 hours 8 minutes 13 seconds Scope Out: 10:46:58 AM Findings: The perianal and digital rectal examinations were normal. There was evidence of a prior ileal pouch-anal anastomosis at the anus. This was non-patent and was characterized by edema, erythema, friable mucosa, inflammation, moderate stenosis and ulceration. The anastomosis was traversed. Biopsies were taken with a cold forceps for histology. Verification of patient identification for the specimen was done. Estimated blood loss was minimal. Coagulation for hemostasis using heater probe was successful. Estimated blood loss was minimal. There was evidence of a non-patent ileal pouch-anal anastomosis found in the ileoanal pouch. This was characterized by severe stenosis and ulceration. This was traversed after dilation. A TTS dilator was passed through the scope. Dilation with a 15 mm colonic balloon dilator was performed. The dilation site was examined and showed moderate improvement in luminal narrowing. Biopsies were taken with a cold forceps for histology. Verification of patient identification for the specimen was done. Estimated blood loss was minimal. A scattered area of mucosa in the terminal ileum was granular. Biopsies were taken with a cold forceps for histology. Verification of patient identification for the specimen was done. Impression: - Non-patent ileal pouch-anal anastomosis, characterized by edema, erythema, friable mucosa, inflammation, ulceration and moderate stenosis. Biopsied. - Non-patent ileal pouch-anal anastomosis, characterized by ulceration and severe stenosis. Dilated. Biopsied. - Granularity in the terminal ileum. Biopsied. Recommendation: - Discharge patient to home. - Resume previous diet. - Continue present medications. - Await pathology results. - Repeat colonoscopy in 1 year. Procedure Code(s): --- Professional --- 39157, 59, Colonoscopy, flexible; with control of bleeding, any method 10045, 51, Colonoscopy, flexible; with transendoscopic balloon dilation 09584, Colonoscopy, flexible; with biopsy, single or multiple CPT copyright 2017 [employer]. All rights reserved. The codes documented in this report are preliminary and upon sign poster review may be revised to meet current compliance requirements. Almas Somers DO 03/12/2022 11:06:39 AM This report has been signed electronically. Number of Addenda: 0 Note Initiated On: 03/12/2022 10:33 AM
--- NOTE | 2022-03-12 11:08 | OP.CCLET_ITS ---
03/12/2022 Nigel Conner MD [address] [place] [address] [place] [address] Re : Colonoscopy procedure for Madelin Koroma Dear Dr. Conner This procedure was performed on Saturday, March 12, 2022. My impressions and recommendations are as follows: Impressions : - Non-patent ileal pouch-anal anastomosis, characterized by edema, erythema, friable mucosa, inflammation, ulceration and moderate stenosis. Biopsied. - Non-patent ileal pouch-anal anastomosis, characterized by ulceration and severe stenosis. Dilated. Biopsied. - Granularity in the terminal ileum. Biopsied. Recommendations : - Discharge patient to home. - Resume previous diet. - Continue present medications. - Await pathology results. - Repeat colonoscopy in 1 year. My findings are described in the full procedure note, which is enclosed. If I can be of further assistance, please feel free to contact me at . Sincerely, Almas Somers, 03/12/2022 11:06:39 AM This report has been signed electronically.
== END 2022-03-12 11:44 | disposition home or self-care (01) ==
LOC: EN 09:24 → AC 09:25
PROVIDERS: PCP Internal Medicine; Referring Provider Internal Medicine; Visit Provider Internal Medicine Gastroenterology
PROC: 0DJD8ZZ Inspection of Lower Intestinal Tract, Via Natural or Artificial Opening Endoscopic (ICD-10-PCS; CPT 45378; principal; 2022-03-12 10:25)
DX: K44.9 Diaphragmatic hernia without obstruction or gangrene (principal); J44.9 Chronic obstructive pulmonary disease, unspecified; K21.00 Gastro-esophageal reflux disease with esophagitis, without bleeding; K62.6 Ulcer of anus and rectum; F32.A Depression, unspecified; F41.9 Anxiety disorder, unspecified; Z79.899 Other long term (current) drug therapy; Z87.891 Personal history of nicotine dependence
CPT/HCPCS: 45380; 45382; 45386; 43239; 91110; 88305; 88313; J7120; J2405

== ENCOUNTER → 2022-03-18 | Outpatient (CLI) | payer BC, SELFPAY ==
--- NOTE | 2022-03-18 12:15 | RAD_ITS ---
STUDY: X-RAY - ABDOMEN/PELVIS REASON FOR EXAM: Female, 61 years old. Pill Cam Retention -- Pill Cam never left small bowel on recording. TECHNIQUE: Single AP view of the abdomen / pelvis. COMPARISON: None. FINDINGS: Normal visualized lung bases. There is an unremarkable bowel gas pattern. Surgical clips in the pelvis. No radiodense pill cam noted. The visualized liver, spleen and kidneys are grossly normal in size and morphology. Normal soft tissue structures. Normal visualized osseous structures. RAD/Abdomen Single View IMPRESSION: No radiodense pill cam noted. Normal x-ray examination of the abdomen and pelvis. Electronically Signed: Martin Covington MD at 19:41 EST ,
[2022-03-18 13:18] LABS: Rubella IgG Reactive (Nonreactive)
[2022-03-21 13:07] LABS: HEPATITIS B SURFACE AG Negative (Negative); Hep C Antibodies <0.1 s/co ratio (0.0-0.9); Hepatitis A IgM Antibody Negative (Negative); Hepatitis B Core AB IgM Negative (Negative); QNTFERON TB Mitogen Value > 10.00 IU/mL (.); QNTFERON TB Nil Value 0.02 IU/mL (.); QNTFERON TB1+ Ag Value 0.01 IU/mL (.); QNTFERON TB2+ Ag Value 0.03 IU/mL (.)
[2022-03-21 15:51] LABS: V-Zoster IgG (Immunity) 230 index (Immune >165)
[2022-03-21 15:52] LABS: B. pertussis IgG 3.92 index (0.00-0.94); Mumps Antibody, IgM 1.03 AU (0.00-0.79); QNTIFERON TB Positive Criteria Negative (Negative)
== END | disposition home or self-care (01) ==
PROVIDERS: PCP Internal Medicine; Referring Provider Internal Medicine Gastroenterology; Visit Provider Internal Medicine Gastroenterology
DX: K50.90 Crohn's disease, unspecified, without complications (principal); Z90.49 Acquired absence of other specified parts of digestive tract
CPT/HCPCS: 36415; 74018; 80074; 86480; 86615; 86735; 86762; 86787

== ENCOUNTER → 2022-05-21 | Outpatient (CLI) | payer BC, SELFPAY ==
--- NOTE | 2022-05-21 09:56 | ART_ITS ---
Reason For Study: PVD Procedure A bilateral lower extremity continuous wave Doppler with analog waveform analysis,segmental pressures,and ankle brachial indexes without exercise. Left Segmental Pressures Left brachial= 124mmHg. Left posterior tibial artery = 144mmHg. Left dorsalis pedis artery = 134mmHg. Left digit = 107 mmHg. The left posterior tibial artery waveforms are triphasic. The left dorsalis pedis waveforms are triphasic. Right Segmental Pressures Right brachial= 120mmHg. Right posterior tibial artery = 156mmHg. Right dorsalis pedis artery = 145mmHg. Right digit = 115 mmHg. The right posterior tibial artery waveforms are triphasic. The right dorsalis pedis waveforms are triphasic. Indices The right ankle brachial index by the posterior tibial artery is 1.26. The right ankle brachial index by the dorsalis pedis is 1.17. The right digital-brachial index is 0.93. The left ankle brachial index by the posterior tibial artery is 1.16. The left ankle brachial index by the dorsalis pedis is 1.08. The left digital-brachial index is 0.86. VL/Lower Ext Art Exam w/o Exercis Interpretation Summary Triphasic Doppler waveforms are noted at ankle level bilaterally. Pulse-volume recordings appear satisfactory bilaterally. Resting ankle-brachial indices are normal bilaterally . Digital-brachial indices are normal bilaterally. There is no evidence of significant arterial occlusive disease in the lower ext remities bilaterally. Ordering Physician: Jovanny Winkler Referring Physician: Nigel Conner Performed By: Eric Gardiner RVT
--- NOTE | 2022-05-21 10:56 | BD_ITS ---
STUDY: DUAL ENERGY X-RAY ABSORPTIOMETRY / DXA REASON FOR EXAM: Female, 61 years old. Post menopausal TECHNIQUE: Bone Mineral Density (BMD) measurements of lumbar spine and bilateral hips were obtained. COMPARISON: None. FINDINGS: Lumbar Spine (L1-L4): g/cm2 (1.056) / T-score (0.1) / Z-score (1.8) Findings are suggestive of normal bone density with a low fracture risk. Left Femur Total: g/cm2 (0.945) / T-score (0.0) / Z-score (1.2) Left Femoral Neck: g/cm2 (0.836) / T-score (-0.1) / Z-score (1.3) Right Femur Total: g/cm2 (0.974) / T-score (0.3) / Z-score (1.4) Right Femoral Neck: g/cm2 (0.859) / T-score (0.1) / Z-score (1.5) BD/Dexa Bone Density Study IMPRESSION: The patient is considered normal as outlined below according to World Aj Organization (WHO) criteria with a low fracture risk. Reference Information: The T-score is the number of standard deviations above or below the standard which is normal for young adults at their peak bone mineral density. The World Health Organization (WHO) interprets the T-scores as follows: Above -1 Normal bone density Between -1 and -2.5 Osteopenia Equal to / or below -2.5 Osteoporosis As a practical clinical guideline, osteopenia may be graded as follows: Mild -1 through -1.5 Moderate -1.6 through -2.0 Severe -2.1 through -2.4 The Z-score is the number of standard deviations above or below age-matched controls. A Z-score of less than -1.5 would be considered abnormal. References: 1. NIH Osteoporosis and Related Bone Diseases www osteo.org 2. International Society for Clinical Densitometry www iscd.org 3. National Osteoporosis Foundation www nof.org Electronically Signed: Kimo Casey MD at 16:54 EST ,
== END | disposition home or self-care (01) ==
PROVIDERS: PCP Internal Medicine; Visit Provider Internal Medicine
DX: I73.9 Peripheral vascular disease, unspecified (principal); Z78.0 Asymptomatic menopausal state
CPT/HCPCS: 77080; 93923

== ENCOUNTER → 2022-05-22 | Outpatient (CLI) | payer BC, SELFPAY ==
[2022-05-22 13:56] VITALS: BP 126/83; PULSE 71; RESP 16; TEMP 36.8; O2SAT 96; BMI 36.1
[2022-05-22] MEDS: 0.9% NaCl Peripheral Flush Adult/Peds IV (14:25)
[2022-05-22 15:36] VITALS: BP 122/75; PULSE 66; RESP 16
== END | disposition home or self-care (01) ==
LOC: MEDOUTP 13:43
PROVIDERS: PCP Internal Medicine; Referring Provider Internal Medicine Gastroenterology; Visit Provider Internal Medicine Gastroenterology
DX: K50.90 Crohn's disease, unspecified, without complications (principal)
CPT/HCPCS: 96365; J7050; A4216; J3358

== ENCOUNTER → 2022-05-27 | Outpatient (CLI) | payer BC, SELFPAY ==
--- NOTE | 2022-05-27 14:49 | CT_ITS ---
INDICATION: Enterography IBD EXAMINATION: CT Abdomen And Pelvis W/ Contrast Injection Enterography TECHNIQUE: Helically acquired images were obtained of the abdomen and pelvis after IV contrast. A radiation dose optimization technique was used for this scan. IV Contrast dosage and agent: Oral and amp; IV BREEZA NEUTRAL and amp; 100mL Isovue-300 Oral contrast: None. COMPARISON: 10/09/2021. FINDINGS: Visualized lung bases: Unremarkable Liver: Unremarkable Gallbladder: Unremarkable Spleen: Unremarkable Pancreas: Unremarkable Adrenal Glands: Unremarkable Kidneys: Unremarkable Vasculature: Mild scattered aortoiliac atherosclerotic calcifications. GI Tract: There are postsurgical changes involving the rectum. Proximal from this the sigmoid colon again appears distended with fluid and air. No abnormal enhancement, bowel wall thickening, strictures or bowel obstruction. Lymphadenopathy: There is redemonstration of a 1.2 cm perirectal lymph node on the right, a 1.6 cm right inguinal node and a 1.1 cm left internal iliac node.. Peritoneum: No ascites. Bladder: Unremarkable Reproductive organs: Unremarkable Bones/Soft tissues: No suspicious osseous or soft tissue lesions CT/Abdomen/Pelvis WITH Contrast IMPRESSION: No acute abnormalities in the abdomen or pelvis. Specifically, no abnormal enhancement, bowel wall thickening, strictures or bowel obstruction. Post surgical changes of the rectum with stable lymphadenopathy as described above. Electronically Signed: Garrett Bonds MD at 19:09 EST ,
[2022-05-27 15:36] LABS: CREATININE FINGERSTICK < 0.9 mg/dL (0.55-1.02); EGFR FINGERSTICK > 60.0000 mL/min (>60)
== END | disposition home or self-care (01) ==
LOC: CT 14:47
PROVIDERS: PCP Internal Medicine; Referring Provider Internal Medicine Gastroenterology; Visit Provider Internal Medicine Gastroenterology
DX: K50.913 Crohn's disease, unspecified, with fistula (principal)
CPT/HCPCS: 74177; Q9967; A4216

== ENCOUNTER 2022-06-11 14:00 | Outpatient (RCR) | payer BC, SELFPAY ==
--- NOTE | 2022-05-14 17:28 | HP.PTEVAL_ITS ---
Patient's Visit Information WENDY BUCKLEY is a 61 year old F referred to Physical Therapy by Dr. Jovanny Winkler DPM with a diagnosis of Bilateral Achilles Tendonitis. Date of Evaluation: 05/14/22 Physical Therapist: Helen Zamora DPT - Visit Plan Frequency: 2x /Week Duration: 4 Weeks Plan: 1x a week in 4 weeks- continue HEP and tx for inflammation. HEP Given IE: Gastroc Stretch, Ankle ROM, ergonomics - Subjective Last year she started having cramping in her feet- over the last 4 months she is now having burning and numbness in her heels. In Mar she reached and felt something pop on the right- she went to see the MD who put her on Prednisone for 6 days and it made it better- just dx with Crones disease. She feels that she is 90% better. She has more pulling sensation and burning. Does not have a N/T in the heels. Next week she has an arterial study to see what her legs look like. She was diagnosed in Feb and is starting her infusions in the next few weeks. Right is a little worse but now they are the same. Worst: 05/16 Agg: feet on the ottoman Eases: heating pad at night Best: without cramping. She was given wall gastroc stretching and range of motion. In the winter she is flat boots, sneakers and flip flops. She spent years in heels but she doesn't have to wear them anymore. 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 She can get her feet flat on the floor from her work chair. They did x-rays but no MRI. Sleep: more due to other things. PMHx/Meds: none since saw PCP 05/05/22 - Objective Posture: fair throughout IE. Gait: no deviation noted Observation: flat boots without support no inserts Edema: none noted ROM: DF: neutral, PF: 30 degrees, Inv: 30 degrees, Ever: 10 deg. Strength: Core: fair, Knee: 5/5, Ankle: 4+/5 in available range. Flex: Gastroc: severe, HS: moderate. Palpation: tender throughout insertion of achilles tendon on posterior heel SLS: 15 sec without LOB HR/TR: able with discomfort - Balance/Special Test Scores Lower Extremity Functional Score: 71 - Goals Goal 1:: Patient will be I with HEP and progression Goal Time Frame: 4-6 Weeks Goal 2:: Patient will demo 10 degrees of DF bilateral Goal Time Frame: 4-6 Weeks Goal 3:: Patient will report 80% improvement Goal Time Frame: 4-6 Weeks - Rehabilitation Potential Physical Therapy Diagnosis: Patient presents with hypomobility- she has decreased LE flex, ROM, proprioception and functional mobility leading to increased pain with ADL's. Rehabilitation Potential: Good - Anticipated Interventions Patient/Client Instruction: Educate patient on: Benefits of Fitness Program Therapeutic Exercise to Include: Strength training, Endurance training, Balance training, Coordination, Agility training, Body mechanics, Postural training, Flexibilty training, Gait and locomotor training, Neuromotor development, Dynamic Lumbar Stabilization, Scapular Strength/Stabilization For the Purpose of:: To improve muscle performance and motor function TENS: No Cryotherapy (ice pack, ice massage): Yes Thermo therapy (hot pack): Yes Ultrasound (thermal/non thermal): Yes Thank you for the opportunity to evaluate your patient. For Medicare and Medicare HMO plans, please review the plan of care and approve it. It will need to be FAXED BACK to us at [phone] for Medicare purposes. For Medicare only, by signing this I certify the plan of care. Please let me know if there are questions or concerns regarding this plan of care. Physician Signature:__ Date:
--- NOTE | 2022-06-11 14:35 | HP.PTDCSUM_ITS ---
It has been my pleasure to treat WENDY BUCKLEY referred by Dr. Jovanny Winkler DPM, with the diagnosis of Bilateral Achilles Tendonitis for a total of 2 visit(s). Discharge Date: Please see the following information for a summary of their discharge status. Subjective: She has had her first infusion- she has been doing her exercises- got her foot rest- The pain is more her right foot- heel is numb- burning- once she wiggles them around it goes away- no more sharp pains. She had the test and the drainage in her legs is great- she feels that she is okay to continue exercises indep % Improvement: 60 Objective/Function: Posture: fair throughout IE. Gait: no deviation noted Observation: unsupportive tennis shoes Edema: none noted ROM: DF: 10, PF: 30 degrees, Inv: 30 degrees, Ever: 10 deg. Strength: Core: fair, Knee: 5/5, Ankle: 5/5 . Flex: Gastroc: severe, HS: moderate. Palpation: tender throughout insertion of achilles tendon on posterior heel SLS: 15 sec without LOB HR/TR: able with discomfort Goal 1:: Patient will be I with HEP and progression Goal Progress: Goal Met Goal 2:: Patient will demo 10 degrees of DF bilateral Goal Progress: Goal Met Goal 3:: Patient will report 80% improvement Goal Progress: Progressing Plan: 06/11/22: Discharge to I HEP- encouraged to call if questions- educated on new shoes. 1x a week in 4 weeks- continue HEP and tx for inflammation. HEP Given IE: Gastroc Stretch, Ankle ROM, ergonomics If there are questions or concerns regarding this patient's physical therapy, dulce medina feel free to call me at [phone]. Thank you for the referral of this patient. Sincerely, Helen Zamora, DPT Balance/Gait/Functional tests - Balance/Special Test Scores Lower Extremity Functional Score: 65
== END 2022-06-11 19:00 | disposition home or self-care (01) ==
LOC: PT 14:00
PROVIDERS: PCP Internal Medicine; Referring Provider Student in an Organized Health Care Education/Training Program; Visit Provider Student in an Organized Health Care Education/Training Program
DX: M76.61 Achilles tendinitis, right leg (principal); M76.62 Achilles tendinitis, left leg
CPT/HCPCS: 97110; 97162; 97164

== ENCOUNTER → 2022-10-22 | Outpatient (CLI) | payer BC, SELFPAY ==
[2022-10-22 15:12] LABS: Absolute Lymphocyte Count 1.58 X10^3/uL (0.83-4.51); Absolute Neutrophil Count 6.1 X10^3/uL (2.0-7.7); Basophil# 0.05 X10^3/uL; Basophil% 0.6 % (0-1); Eosinophil# 0.03 X10^3/uL; Eosinophils% 0.4 % (0-5); Hematocrit 38.2 % (37-47); Hemoglobin 11.8 g/dL (12.0-15.0); Lymphocyte # 1.58 X10^3/ul (0.83-4.51); Lymphocyte % 19.3 % (19-41); Mean Corp Hgb Conc 30.9 g/dL (32-36); Mean Corpuscular Hgb 28.2 pg (27.0-32.0); Mean Corpuscular Volume 91.2 fL (81-99); Mean Platelet Vol. 9.3 fl (6.2-12.0); Monocyte# 0.38 X10^3/uL; Monocyte% 4.6 % (0-10); NRBC Flagged by Analyzer 0 % (0-5); Neutrophil # 6.13 X10^3/uL (2.7-7.7); Neutrophil % 74.9 % (47-70); Platelet Count 431 K/mm3 (150-450); RBC Distribution Width CV 14.7 % (11.6-14.6); RBC Distribution Width SD 49.1 fl (35.1-43.9); Red Blood Count 4.19 M/mm3 (4.2-5.4); White Blood Count 8.2 K/mm3 (4.4-11.0)
[2022-10-22 15:27] LABS: ALB/GLOB Ratio 0.8 RATIO (0.9-2.4); AST(SGOT) 15 U/L (15-37); Alanine Aminotransfer ALT/SGPT 34 U/L (13-56); Albumin, Serum 3.3 g/dL (3.2-5.0); Alkaline Phosphatase 93 U/L (45-117); Anion Gap 9 (5-15); BUN 17 mg/dL (7-18); BUN/Creat Ratio 18.6 RATIO (10-20); CRP 8.15 mg/L (0.0-3.0); Chloride 107 mmol/L (98-107); Creatinine, Serum 0.92 mg/dL (0.55-1.02); EST Glomerular Filtration Rate 66 mL/min (>60); Est Glom Filt Rate - Afr Amer 79 mL/min (>60); Globulin 4.1 g/dL (2.2-4.2); Glucose 91 mg/dL (74-106); Potassium 3.9 mmol/L (3.5-5.1); Protein, Total 7.4 g/dL (6.4-8.2); Sodium Level 141 mmol/L (136-145)
[2022-10-22 15:41] LABS: Erythrocyte Sedimentation Rate 46 mm/hr (0-30)
== END | disposition home or self-care (01) ==
PROVIDERS: PCP Internal Medicine; Visit Provider Internal Medicine Gastroenterology
DX: K50.913 Crohn's disease, unspecified, with fistula (principal)
CPT/HCPCS: 36415; 80053; 85025; 85652; 86140

== ENCOUNTER → 2023-02-09 | Outpatient (CLI) | payer BC, SELFPAY ==
--- NOTE | 2023-02-09 10:42 | BI_ITS ---
MAMMOGRAPHY - BILATERAL SCREENING REASON FOR EXAM: Female, 62 years old. Routine annual screening examination. PERTINENT HISTORY: Mother with breast cancer. TECHNIQUE: Digital bilateral breast nguyen (3D mammographic acquisition) in the CC and MLO projections. 2-D mediolateral oblique (MLO) and craniocaudad (CC) views of both breasts were obtained. CAD: Full Field Digital Mammography with Computer Added Detection was performed. COMPARISON: Comparison is made with prior study dated February 06, 2022 and February 04, 2021. FINDINGS: Breast Composition: There are scattered areas of fibroglandular density. There are no dominant masses or suspicious calcifications. No other significant abnormalities are identified. There has been no significant change since the prior study. BI/SCRN MAMM (CAD)W/NGUYEN BILAT IMPRESSION: Stable bilateral screening mammogram. Yearly follow-up mammogram recommended. (A) ASSESSMENT CATEGORY: BIRADS Category 1: Negative. A letter regarding these results will be sent to the patient by the facility within 30 days. Approximately 10% of breast cancers are not detected by mammography. A normal mammogram should not delay biopsy of a clinically suspicious abnormality. [id number] Electronically Signed: Kimo Casey MD at 12:54 EST ,
== END | disposition home or self-care (01) ==
LOC: OPBI 10:41
PROVIDERS: PCP Internal Medicine; Referring Provider Internal Medicine; Visit Provider Internal Medicine
DX: Z12.31 Encounter for screening mammogram for malignant neoplasm of breast (principal); Z80.3 Family history of malignant neoplasm of breast
CPT/HCPCS: 77063; 77067

== ENCOUNTER → 2024-02-17 | Outpatient (CLI) | payer MEDICARE, SELFPAY ==
--- NOTE | 2024-02-17 12:30 | BI_ITS ---
MAMMOGRAPHY - BILATERAL SCREENING REASON FOR EXAM: Female, 63 years old. Routine annual screening examination. PERTINENT HISTORY: Mother with breast cancer. TECHNIQUE: Digital bilateral breast nguyen (3D mammographic acquisition) in the CC and MLO projections. 2-D mediolateral oblique (MLO) and craniocaudad (CC) views of both breasts were obtained. CAD: Full Field Digital Mammography with Computer Added Detection was performed. COMPARISON: Comparison is made with prior study dated February 09, 2023 and February 06, 2022. FINDINGS: Breast Composition: There are scattered areas of fibroglandular density. There are no dominant masses or suspicious calcifications. No other significant abnormalities are identified. There has been no significant change since the prior study. BI/SCRN MAMM (CAD)W/NGUYEN BILAT IMPRESSION: Stable bilateral screening mammogram. Yearly follow-up mammogram recommended. (A) ASSESSMENT CATEGORY: BIRADS Category 1: Negative. A letter regarding these results will be sent to the patient by the facility within 30 days. Approximately 10% of breast cancers are not detected by mammography. A normal mammogram should not delay biopsy of a clinically suspicious abnormality. [id number] Electronically Signed: Kimo Casey MD at 13:15 EST ,
== END | disposition home or self-care (01) ==
LOC: OPBI 12:30
PROVIDERS: PCP Internal Medicine; Referring Provider Internal Medicine; Visit Provider Internal Medicine
DX: Z12.31 Encounter for screening mammogram for malignant neoplasm of breast (principal)
CPT/HCPCS: 77063; 77067

== ENCOUNTER → 2024-12-06 | Outpatient (CLI) | payer MEDICARE, SELFPAY ==
--- NOTE | 2024-12-06 14:26 | BD_ITS ---
PROCEDURE: DEXA BONE DENSITY STUDY 12/06/2024 REASON FOR EXAM: POST MENOPAUSAL F, age 64 y/o . Postmenopausal. TECHNIQUE: Procedure Code: BDDBD Modality: DX Procedure: DEXA BONE DENSITY STUDY COMPARISON: May 21, 2022. FINDINGS: BMD and T-SCORES Lumbar spine: 1.108 g/cm2, T-score 0.6 Levels: L1 through L4 Change from prior: Improvement of 4.9%. Left femoral neck: 0.788 g/cm2, T-score -0.5 Femoral neck comparison data not recommended for monitoring change. Left total hip: 0.938 g/cm2, T-score 0.0 Change from prior: Loss of 0.7%. Right femoral neck: 0.794 g/cm2, T-score -0.5 Femoral neck comparison data not recommended for monitoring change. Right total hip: 0.947 g/cm2, T-score 0.0 Change from prior: Loss of 2.7%. The World Health Organization has defined the following categories based on bone density: Normal bone density: T-score equal to or greater than -1.0 Osteopenia: T-score between -1.0 and -2.5 Osteoporosis: T-score equal to or less than -2.5 FRAX (or Comparable) Fracture Risk Assessment: 10 Year Probability of Fracture: Major Osteoporotic Fracture: 8.8% Hip Fracture: 0.5% (Note: FRAX is not to be reported in setting of normal range bone density, osteoporosis on DEXA, known history of osteoporosis, prior osteoporotic hip or vertebral fracture, or for any patient undergoing pharmacological treatment for bone loss.) The National Osteoporosis Foundation (NOF) recommends pharmacological treatment for patients with a FRAX 10-year risk of 3% or higher for a hip fracture, or 20% or higher for a major osteoporotic fracture, to prevent osteoporosis and reduce fracture risk. The patient does not meet the pharmacological treatment recommendations for prevention of osteoporosis. BD/Dexa Bone Density Study IMPRESSION: NORMAL T-SCORES. Recommend follow-up as clinically warranted. Reading Location: [place] [address]
== END | disposition home or self-care (01) ==
LOC: OPBD 14:21
PROVIDERS: PCP Internal Medicine; Referring Provider Internal Medicine; Visit Provider Internal Medicine
DX: Z13.820 Encounter for screening for osteoporosis (principal); Z78.0 Asymptomatic menopausal state
CPT/HCPCS: 77080

== ENCOUNTER → 2024-12-09 | Outpatient (CLI) | payer MEDICARE, SELFPAY ==
[2024-12-09 15:54] LABS: Iron Binding Capacity,Total 434 ug/dL (250-450)
[2024-12-09 16:26] LABS: Ferritin 28 ng/mL (22-378); Iron 27 ug/dL (50-170); Iron Binding Capacity,Unsat 407 ug/dL (228-428)
== END | disposition home or self-care (01) ==
LOC: BIMLAB 12:12
PROVIDERS: PCP Internal Medicine; Referring Provider Internal Medicine; Visit Provider Internal Medicine
DX: E61.1 Iron deficiency (principal)
CPT/HCPCS: 36415; 82728; 83540; 83550

== ENCOUNTER → 2025-02-20 | Outpatient (CLI) | payer MEDICARE, SELFPAY ==
--- NOTE | 2025-02-20 14:30 | BI_ITS ---
EXAM: SCRN MAMM (CAD)W/NGUYEN BILAT DATE: 02/20/2025 CLINICAL HISTORY: F, Age 64 y/o , BREAST CANCER SCREENING TECHNIQUE: Procedure Code: [id number] Modality: MG Procedure: SCRN MAMM (CAD)W/NGUYEN BILAT COMPARISON: Prior exam(s) were compared FINDINGS: TISSUE DENSITY: The breasts are heterogeneously dense, which may obscure small masses. Bilateral Breast Mammographic Findings: No significant masses, calcifications or other abnormalities are identified. BI/SCRN MAMM (CAD)W/NGUYEN BILAT IMPRESSION: No mammographic evidence of malignancy in either breast. OVERALL FINAL ASSESSMENT BI-RADS 1: NEGATIVE. RECOMMENDATION: Routine annual follow-up in 1 Year Additional Recommendation none A letter with findings and recommendations will be mailed to the patient. Reading Location: [id number]
== END | disposition home or self-care (01) ==
PROVIDERS: PCP Internal Medicine; Referring Provider Internal Medicine; Visit Provider Internal Medicine
DX: Z12.31 Encounter for screening mammogram for malignant neoplasm of breast (principal)
CPT/HCPCS: 77063; 77067

== ENCOUNTER → 2025-03-08 | Outpatient (CLI) | payer MEDICARE, SELFPAY ==
[2025-03-08 17:54] LABS: Hematocrit 38.8 % (37-47); Hemoglobin 12.1 g/dL (12.0-15.0); Immature Granulocytes Count 0.010 X10^3/uL (0.0-0.0); Mean Corp Hgb Conc 31.2 g/dL (32-36); Mean Corpuscular Volume 90.4 fL (81-99); Mean Platelet Vol. 9.7 fl (6.2-12.0); NRBC Flagged by Analyzer 0 % (0-5); Platelet Count 351 K/mm3 (150-450); RBC Distribution Width CV 15.9 % (11.6-14.6); RBC Distribution Width SD 53.1 fl (35.1-43.9); Red Blood Count 4.29 M/mm3 (4.2-5.4); White Blood Count 6.3 K/mm3 (4.4-11.0)
[2025-03-08 18:10] LABS: Ferritin 49 ng/mL (22-378); Iron 44 ug/dL (50-170); Iron Binding Capacity,Total 320 ug/dL (250-450); Iron Binding Capacity,Unsat 276 ug/dL (228-428)
== END | disposition home or self-care (01) ==
LOC: MTLAB 14:02
PROVIDERS: PCP Internal Medicine; Referring Provider Internal Medicine; Visit Provider Internal Medicine
DX: K50.90 Crohn's disease, unspecified, without complications (principal)
CPT/HCPCS: 36415; 82728; 83540; 83550; 85025